=== PATIENT | male | born 1975 | race Two or more races ===

== ENCOUNTER 2020-11-24 13:56 | Outpatient (CLI) | payer OTHER | END 2020-11-24 14:03 | disposition home or self-care (01) | LOC: EDBD 13:56 → RAD 13:56 | DX: R05 Cough (principal); R53.81 Other malaise; R06.02 Shortness of breath; J45.998 Other asthma ==

== ENCOUNTER → 2020-11-24 14:16 | Outpatient (CLI) | payer OTHER | END | disposition home or self-care (01) | LOC: LAB → EDBD 14:16 | DX: Z20.828 Contact with and (suspected) exposure to other viral communicable diseases (principal); Z11.52 Encounter for screening for COVID-19 ==